=== PATIENT | male | born 1970 | race Caucasian/White ===

== ENCOUNTER 2017-04-22 14:23 | Inpatient (IN) | payer OTHER ==
[~2017-04-22] VITALS: Ht 177.8 cm; Wt 127.5 kg
--- NOTE | 2017-04-22 14:40 | NUR ---
PT IS IN ROOM #1A. DR THORNTON EVALUATED THE PT.
[2017-04-22] MEDS ORDERED: NITROGLYCERIN 0.4 MG/TAB BOTTLE SL ONE ×2 (14:41→15:00)
[2017-04-22] MEDS ORDERED: ASPIRIN 81 MG TAB.CHEW ONE (14:42)
[2017-04-22 14:48] LABS: BASOPHILS # (AUTO) 0.4 K/uL (0.0-8.0); BASOPHILS % (AUTO) 2.8 % (0.0-2.0); CREATININE 1.7 mg/dL (0.6-1.3); EOSINOPHILS # (AUTO) 0.4 K/uL (0.0-0.7); EOSINOPHILS % (AUTO) 2.9 % (0.0-7.0); HEMATOCRIT 44.6 % (40-50); HEMOGLOBIN 14.6 G/DL (14.0-18.0); LYMPHOCYTES # (AUTO) 3.7 K/UL (0.8-4.8); LYMPHOCYTES % (AUTO) 25.1 % (20.5-51.5); MEAN CORPUSCULAR HEMOGLOBIN 27.2 UUG (27.0-31.0); MEAN CORPUSCULAR HGB CONC 33 g/dL (32.0-37.0); MEAN CORPUSCULAR VOLUME 83.2 FL (82.0-92.0); MONOCYTES # (AUTO) 0.9 K/UL (0.1-1.30); MONOCYTES % (AUTO) 6.3 % (0.0-11.0); NEUTROPHILS # (AUTO) 9.5 K/UL (1.8-8.9); NEUTROPHILS % (AUTO) 62.9 % (38.5-71.5); PLATELET COUNT (AUTO) 298 K/UL (150-450); POTASSIUM 3.2 mmol/L (3.5-5.1); RED BLOOD CELL COUNT(AUTO) 5.36 MIL/UL (4.7-6.1); WHITE BLOOD COUNT (AUTO) 14.9 K/UL (4.0-11.2)
[2017-04-22] MEDS ORDERED: ASPIRIN 81 MG TAB.CHEW PO ONE (15:00)
[2017-04-22] MEDS ORDERED: NITROGLYCERIN OINT 1 GM PACKET TP ONE ×2 (15:00→15:17)
[2017-04-22] MEDS ORDERED: LISI40TA4 PO (15:10)
[2017-04-22] MEDS ORDERED: NICO1PAT25 TP (15:10)
[2017-04-22] MEDS ORDERED: HYDR-4076 PO (15:10)
[2017-04-22] MEDS ORDERED: ASPI-605 PO (15:10)
[2017-04-22] MEDS ORDERED: HYDR-4077 PO (15:10)
[2017-04-22] MEDS ORDERED: METO50TA3 PO (15:10)
[2017-04-22] MEDS ORDERED: AMLO10TA2 PO (15:10)
[2017-04-22] MEDS ORDERED: HYDR25TA4 PO (15:10)
[2017-04-22 15:15] LABS: BAND % (MANUAL) 4 % (0-10); EOSINOPHILS % (MANUAL) 4 % (0-8); LYMPHOCYTES % (MANUAL) 23 % (20-40); MONOCYTES % (MANUAL) 5 % (2-10); NEUTROPHILS % (MANUAL) 64 % (42-75)
[2017-04-22] MEDS ORDERED: METOPROLOL TARTRATE 50 MG TABLET PO ONE (16:00)
[2017-04-22] MEDS ORDERED: ENOXAPARIN SODIUM 30 MG/0.3 ML DISP.SYRIN SUBCUT ONE (16:00)
[2017-04-22] MEDS ORDERED: FENTANYL CITRATE 100 MCG/2 ML AMPUL IV ONE (16:00)
[2017-04-22] MEDS ORDERED: FENTANYL CITRATE 100 MCG/2 ML AMPUL ONE (16:19)
[2017-04-22] MEDS ORDERED: METOPROLOL TARTRATE 50 MG TABLET ONE (16:20)
[2017-04-22] MEDS ORDERED: ENOXAPARIN SODIUM 40 MG/0.4 ML DISP.SYRIN SQ ONE ×2 (16:20→23:04)
[2017-04-22] MEDS ORDERED: ENOXAPARIN SODIUM 80 MG/0.8 ML DISP.SYRIN SQ ONE (16:21)
--- NOTE | 2017-04-22 16:30 | NUR ---
PT WAS TRANSFERED TO ROOM #221. REPORT WAS GIVEN TO CARBURETOR REBUILDER.
[2017-04-22 17:00] VITALS: BP 143/76
--- NOTE | 2017-04-22 17:15 | NUR ---
ADMISSION PROTOCOL FOLLOWED, PT AXOX4, AMBULATORY, HAS CHEST PAIN 7/10 NON RADIATING. PT STATES HE HAS BEEN RECENTLY HOMELESS AND HAS BEEN STRESSED ON FINDING A PLACE AND MONEY. DR AMELIA CASTRO MADE AWARE OF PT ARRIVAL AND ORDERS WERE RECEIVED. PT GIVEN PAIN MEDICATION AND IS NOW PAIN FREE AT THIS TIME, EATING DINNER IN BED. CALL LIGHT IN REACH, BED ALARM ON
[2017-04-22] MEDS: MORPHINE SULFATE 2 MG/1 ML DISP.SYRIN IV PRN ×2 (17:49→22:00)
[2017-04-22 21:35] VITALS: BP 105/56
[2017-04-22] MEDS ORDERED: ACETAMINOPHEN 325 MG TABLET PO PRN (22:00)
[2017-04-22] MEDS ORDERED: MAGNESIUM HYDROXIDE 30 ML LIQUID UDC PO PRN (22:00)
[2017-04-22] MEDS ORDERED: ONDANSETRON 4 MG/2 ML VIAL IV PRN (22:00)
[2017-04-22] MEDS ORDERED: ENOXAPARIN SODIUM 30 MG/0.3 ML DISP.SYRIN SUBCUT SCH (22:00)
[2017-04-22] MEDS ORDERED: Z GUARD REMEDY PASTE 57 GM TUBE TOP PRN (22:00)
[2017-04-22] MEDS ORDERED: MORPHINE SULFATE 2 MG/1 ML DISP.SYRIN IV PRN (22:00)
[2017-04-23] VITALS (18 sets, daily range): BP systolic 120–149; BP diastolic 43–101
--- NOTE | 2017-04-23 00:01 | NUR ---
PATIENT TROPONIN LEVEL 5.[address] AMELIA LARA WITH NO NEW ORDER AT THIS TIME, PATIENT AWAKE ALERT, ORIENTED, NO SOB NO CHEST PAIN, NOTED, SKIN WARM AND DRY TO TOUCH, ASYMPTOMATIC, V/S 149/85, HR. 73, RR 19, OXYGEN SAT 94%, T-98.1.
[2017-04-23] MEDS: HYDROCODONE/APAP 5-325MG TABLET PO PRN ×2 (03:11→11:17)
--- NOTE | 2017-04-23 03:11 | NUR ---
PATIENT GIVEN NARCO 5/325 PO TAB, FOR LEFT CHEST, RIGHT CHEST PAIN, PATIENT STATED "ITS PROBABLY THE WAY I SLEEP" BP 146/80, 69, OXYGEN SAT 94% USES CPAP BEFORE GOING BACK TO SLEEP, SKIN WARM AND DRY, CHEST PAIN IS NON RADIATING ACCORDING TO PATIENT. CONT TO MONITOR.
[2017-04-23] MEDS ORDERED: HYDROCODONE/APAP 5-325MG TABLET ONE (03:21)
--- NOTE | 2017-04-23 05:40 | NUR ---
PATIENT TROPONIN 8.[address] JANETT ASHTON WITH ORDERS. PATIENT AWAKE ALERT, SKIN WARM AND DRY TO TOUCH. NO S/S OF DISTRESS.
[2017-04-23] MEDS ORDERED: HEPARIN/D5W DRIP 500 ML ONE (06:22)
--- NOTE | 2017-04-23 06:33 | NUR ---
TRANSFER PATIENT TO CCU UNIT, GIVEN REPORT TO RECEIVING NURSE.
[2017-04-23] MEDS ORDERED: LORAZEPAM 2 MG/1 ML VIAL IV ONE (06:45)
[2017-04-23 06:56] LABS: BILIRUBIN,TOTAL 0.5 mg/dL (0.2-1.0); CREATININE 1.5 mg/dL (0.6-1.3); MAGNESIUM 1.9 mg/dL (1.8-2.4); PHOSPHOROUS 3.7 mg/dL (2.5-4.9); POTASSIUM 2.9 mmol/L (3.5-5.1); TOTAL PROTEIN, SERUM 6.7 g/dL (6.4-8.2)
[2017-04-23] MEDS ORDERED: LORAZEPAM 2 MG/1 ML VIAL ONE (06:58)
--- NOTE | 2017-04-23 06:58 | NUR ---
New order Ativan pulled from [facility], administered as ordered. See eMAR STK-MED ONCE
[2017-04-23 07:00] LABS: BASOPHILS # (AUTO) 0.1 K/uL (0.0-8.0); BASOPHILS % (AUTO) 0.5 % (0.0-2.0); EOSINOPHILS # (AUTO) 0.3 K/uL (0.0-0.7); EOSINOPHILS % (AUTO) 2.7 % (0.0-7.0); HEMOGLOBIN 13.1 G/DL (14.0-18.0); LYMPHOCYTES # (AUTO) 3.4 K/UL (0.8-4.8); LYMPHOCYTES % (AUTO) 26.1 % (20.5-51.5); MEAN CORPUSCULAR HEMOGLOBIN 27.6 UUG (27.0-31.0); MEAN CORPUSCULAR HGB CONC 34 g/dL (32.0-37.0); MEAN CORPUSCULAR VOLUME 82.3 FL (82.0-92.0); MONOCYTES % (AUTO) 7.4 % (0.0-11.0); NEUTROPHILS # (AUTO) 8.1 K/UL (1.8-8.9); NEUTROPHILS % (AUTO) 63.3 % (38.5-71.5); PLATELET COUNT (AUTO) 255 K/UL (150-450); WHITE BLOOD COUNT (AUTO) 12.9 K/UL (4.0-11.2)
[2017-04-23 07:07] LABS: RED BLOOD CELL COUNT(AUTO) 4.73 MIL/UL (4.7-6.1)
[2017-04-23] MEDS ORDERED: HEPARIN SODIUM,PORCINE 5,000 UNITS/ML VIAL IV ONE ×2 (07:15)
--- NOTE | 2017-04-23 07:23 | NUR ---
As reported by rn Ania heparin ordered by Dr. Dias with pharmacy to dose bolus dose to be given. bolus calculated by pharmacist Sara. and orders to give 8000 units and start drip double check with pharmacist.
--- NOTE | 2017-04-23 07:27 | NUR ---
Spoke with Dr. Dias for clarification of Heparin order. Stated that the calculated units for bolus and rate per protocol is bolus of 8909 units and max rate of 1200 units/hr. Per MD, follow protocol and verify dose with pharmacy. Pharmacy called for clarification. Max bolus of 4000 units and max rate of 1200 units/hr to follow. Weight-based heparin protocol order sheet placed in paper chart.
[2017-04-23 07:37] LABS: THYROID STIMULATING HORMONE 1.246 mIU/mL (0.358-3.740)
[2017-04-23] MEDS: HEPARIN/D5W DRIP 500 ML IV PRN (07:55)
--- NOTE | 2017-04-23 08:00 | NUR ---
Dr. Leon in the unit to examine patient. Imaging Science Professor Mery notified to contact case fitter to initiate transfer process.
[2017-04-23] MEDS: AMLODIPINE 10 MG TABLET PO SCH (08:11)
[2017-04-23] MEDS: METOPROLOL TARTRATE 50 MG TABLET PO SCH ×2 (08:11→21:16)
[2017-04-23] MEDS ORDERED: POTASSIUM CHLORIDE 20 MEQ POWDER PACKET PO ONE (08:30)
--- NOTE | 2017-04-23 08:30 | NUR ---
A call back from gearcase assembler Lizzy face sheet sent by laney Villeda. Awaiting for plan of care.
[2017-04-23] MEDS: ATORVASTATIN 40 MG TABLET PO SCH (08:53)
[2017-04-23] MEDS: NICOTINE 21 MG/24HR PATCH TD SCH (08:53)
[2017-04-23] MEDS ORDERED: hydrALAZINE HCL 25 MG TABLET PO SCH (09:00)
--- NOTE | 2017-04-23 09:20 | NUR ---
a Troponing of 7.[address] reported at this time. Dr. Leon still in the unit and aware. No orders received.
[2017-04-23] MEDS ORDERED: HEPARIN SODIUM,PORCINE 5,000 UNITS/ML VIAL IV PRN (11:00)
[2017-04-23] MEDS: ASPIRIN EC 81 MG TABLET.DR PO SCH (11:16)
--- NOTE | 2017-04-23 12:00 | NUR ---
Dr. priscilla arias in the unit to examine patient; Report given, with no new orders received.
--- NOTE | 2017-04-23 12:30 | NUR ---
At this time a call from [facility] to [facility] that IE has to dictate where patient is going. She also stated that she has no phone number to call them. Mary Alice was provided with nursing blood donor recruiter supervisor cell phone number to informed her since we're not allowed to give community case manager's cell phone number.
[2017-04-23] MEDS: hydrALAZINE HCL 50 MG TABLET PO SCH ×2 (13:28→16:52)
[2017-04-23] MEDS: FENTANYL CITRATE 100 MCG/2 ML AMPUL IV PRN ×3 (13:30→21:16)
--- NOTE | 2017-04-23 13:37 | NUR ---
hand off report given to laney Ordonez.
--- NOTE | 2017-04-23 15:00 | NUR ---
Nursing child care supervisor with [facility] call number
--- NOTE | 2017-04-23 15:07 | NUR ---
A call to nursing supervisor screen making at this time to follow up with possible transfer and contact number for [facility]insurance. Addendum: 04/23/17 at 1509 by RENETTA BURKETT RN [facility] contact number awaiting call back.
--- NOTE | 2017-04-23 15:18 | NUR ---
a call to dr. Leon for diet orders.
--- NOTE | 2017-04-23 15:19 | NUR ---
At this time [facility] called and as automated response gather information stating that patient is under medical coverage and [facility] [place]. Nursing Devops Architect informed.
--- NOTE | 2017-04-23 21:45 | NUR ---
PTT drawn at this time, pending results for Heparin gtt adjustment
[2017-04-23] MEDS: ZOLPIDEM 5 MG TABLET PO PRN (22:48)
--- NOTE | 2017-04-23 23:00 | NUR ---
PTT results 36.0. Changes to rate per Heparin drip protocol calls for new rate of 1600 units/hr. On protocol form, states "Infusion rate (1200 units/hr)." Clarified with Dr. Ramirez. Okayed by MD to exceed 1200 units/hr to follow rate as calculated. Patient also now complaining of chest pain despite medication given earlier. Notified MD. New orders received and implemented.
[2017-04-23] MEDS ORDERED: MORPHINE SULFATE 2 MG/1 ML DISP.SYRIN IV ONE (23:30)
[2017-04-23] MEDS ORDERED: NITROGLYCERIN OINT 1 GM PACKET TP ONE (23:30)
[2017-04-24] VITALS (23 sets, daily range): BP systolic 115–160; BP diastolic 65–128
[2017-04-24] MEDS: HEPARIN/D5W DRIP 500 ML IV PRN ×2 (02:38→17:22)
[2017-04-24 05:22] LABS: BASOPHILS % (AUTO) 0.4 % (0.0-2.0); EOSINOPHILS # (AUTO) 0.4 K/uL (0.0-0.7); EOSINOPHILS % (AUTO) 3.4 % (0.0-7.0); HEMATOCRIT 40.2 % (40-50); HEMOGLOBIN 13.4 G/DL (14.0-18.0); LYMPHOCYTES # (AUTO) 3.7 K/UL (0.8-4.8); LYMPHOCYTES % (AUTO) 31.7 % (20.5-51.5); MEAN CORPUSCULAR HEMOGLOBIN 27.5 UUG (27.0-31.0); MEAN CORPUSCULAR HGB CONC 33 g/dL (32.0-37.0); MEAN CORPUSCULAR VOLUME 82.8 FL (82.0-92.0); MONOCYTES # (AUTO) 1.1 K/UL (0.1-1.30); MONOCYTES % (AUTO) 9.5 % (0.0-11.0); NEUTROPHILS # (AUTO) 6.6 K/UL (1.8-8.9); PLATELET COUNT (AUTO) 238 K/UL (150-450); RED BLOOD CELL COUNT(AUTO) 4.86 MIL/UL (4.7-6.1); WHITE BLOOD COUNT (AUTO) 11.8 K/UL (4.0-11.2)
[2017-04-24 05:34] LABS: CREATININE 1.2 mg/dL (0.6-1.3); PHOSPHOROUS 3.7 mg/dL (2.5-4.9)
[2017-04-24] MEDS: ASPIRIN EC 81 MG TABLET.DR PO SCH (08:28)
[2017-04-24] MEDS: AMLODIPINE 10 MG TABLET PO SCH (08:28)
[2017-04-24] MEDS: FENTANYL CITRATE 100 MCG/2 ML AMPUL IV PRN ×4 (08:28→21:53)
[2017-04-24] MEDS: ATORVASTATIN 40 MG TABLET PO SCH (08:29)
[2017-04-24] MEDS: hydrALAZINE HCL 50 MG TABLET PO SCH ×3 (08:29→16:21)
[2017-04-24] MEDS: METOPROLOL TARTRATE 50 MG TABLET PO SCH ×2 (08:29→20:32)
[2017-04-24] MEDS: NICOTINE 21 MG/24HR PATCH TD SCH (08:30)
--- NOTE | 2017-04-24 09:36 | NUR ---
8:46 Called [facility] [ ] and was directed to their after hours phone line - [phone]. 8:48 Called After Hours and they stated that the offices are closed and the only ones available are the RN advisors which do not deal with transfers. Was transferred to their Transportation Services Line and spoke to Ruthie who said that they can not help at this time but provided Customer Service Line. 8:54 Called Customer Service Line [ ] and they are currently closed. The answering service redirected this certified physician assistant to their after hours phone line [ ] once again. 8:58 Called [facility] [ ; [address] [place] [address]] because it is the [facility] where the patient's PCP, Dr. Norwood, is affiliated with. Spoke to their RN Fan Blade Truer, Radha, about the patient's situation and she stated that they are currently full and has 7 patients in their ER waiting for a bed. She suggested for the patient's information to be faxed to their Senior Asic Engineer [ ; ext.[phone]; ] and follow-up tomorrow. Faxed his information. 9:15 Had been in contact with Saloni [ ], TRA from [facility], and she stated that they can not help with the transfer because the patient is Out Of Area.
[2017-04-24] MEDS ORDERED: POTASSIUM CHLORIDE 20 MEQ TAB.PRT.SR PO ONE (12:15)
--- NOTE | 2017-04-24 12:20 | NUR ---
Dr. Polk in to examine patient and update him of plan of care.
--- NOTE | 2017-04-24 12:21 | NUR ---
Dr. Polk in the unit to examine patient; full report given and DrRahel also updated MJ. pt's daughter who remains at bedside. Addendum: 04/24/17 at 1223 by RENETTA BURKETT RN The above note intended for another patient. User error.
[2017-04-24] MEDS ORDERED: CLOPIDOGREL 75 MG TABLET PO ONE (16:15)
[2017-04-25] VITALS (14 sets, daily range): BP systolic 109–150; BP diastolic 64–85
[2017-04-25] MEDS: ZOLPIDEM 5 MG TABLET PO PRN (01:50)
--- NOTE | 2017-04-25 02:18 | NUR ---
Shift note: Pt a/o x 4. No cardiopulmonary distress. on 2L nc oxygen. sats mid 90s. assessment done and charted. medicated for chest pain with fentanyl as per order with good relief of pain to 0/10 from 01/31. CPAP on at midnight. RT checked the setting with pt. Resting comfortably. NSR on monitor. continue to monitor.
--- NOTE | 2017-04-25 06:47 | NUR ---
Pt asleep. no changes. weight not done. will endorse it to day shift. waiting for PTT.
[2017-04-25 06:53] LABS: BASOPHILS # (AUTO) 0.1 K/uL (0.0-8.0); BASOPHILS % (AUTO) 0.5 % (0.0-2.0); EOSINOPHILS # (AUTO) 0.4 K/uL (0.0-0.7); EOSINOPHILS % (AUTO) 3.7 % (0.0-7.0); HEMATOCRIT 39.7 % (40-50); HEMOGLOBIN 13.1 G/DL (14.0-18.0); LYMPHOCYTES # (AUTO) 3.5 K/UL (0.8-4.8); LYMPHOCYTES % (AUTO) 29.7 % (20.5-51.5); MEAN CORPUSCULAR HEMOGLOBIN 27.1 UUG (27.0-31.0); MEAN CORPUSCULAR HGB CONC 33 g/dL (32.0-37.0); MEAN CORPUSCULAR VOLUME 82.4 FL (82.0-92.0); MONOCYTES % (AUTO) 8.3 % (0.0-11.0); NEUTROPHILS # (AUTO) 6.7 K/UL (1.8-8.9); NEUTROPHILS % (AUTO) 57.8 % (38.5-71.5); PLATELET COUNT (AUTO) 242 K/UL (150-450); RED BLOOD CELL COUNT(AUTO) 4.82 MIL/UL (4.7-6.1); WHITE BLOOD COUNT (AUTO) 11.7 K/UL (4.0-11.2)
[2017-04-25 07:29] LABS: CREATININE 1.2 mg/dL (0.6-1.3); MAGNESIUM 2.1 mg/dL (1.8-2.4); PHOSPHOROUS 3.3 mg/dL (2.5-4.9); POTASSIUM 3.4 mmol/L (3.5-5.1)
[2017-04-25] MEDS: HEPARIN/D5W DRIP 500 ML IV PRN (07:30)
[2017-04-25] MEDS: FENTANYL CITRATE 100 MCG/2 ML AMPUL IV PRN (07:57)
[2017-04-25] MEDS: ASPIRIN EC 81 MG TABLET.DR PO SCH (08:06)
[2017-04-25] MEDS: ATORVASTATIN 40 MG TABLET PO SCH (08:06)
[2017-04-25] MEDS: AMLODIPINE 10 MG TABLET PO SCH (08:07)
[2017-04-25] MEDS: METOPROLOL TARTRATE 50 MG TABLET PO SCH (08:08)
[2017-04-25] MEDS: hydrALAZINE HCL 50 MG TABLET PO SCH ×2 (08:08→13:26)
[2017-04-25] MEDS: NICOTINE 21 MG/24HR PATCH TD SCH (08:19)
[2017-04-25] MEDS ORDERED: CLOPIDOGREL 75 MG TABLET PO SCH (09:00)
[2017-04-25] MEDS ORDERED: POTASSIUM CHLORIDE 20 MEQ TAB.PRT.SR PO ONE (12:00)
--- NOTE | 2017-04-25 12:55 | NUR ---
Patient has been accepted at [facility]. Spoke to Kishore Bansal (dye and chemical coordinator) regarding patient needing Cardiac Catherization. MD is accepting patient at this time. Spoke to MICHAEL Cervantes who is coming now via ambulance to merchandise pickup/receiving associate the patient. Contact number [phone] . Insurance contacted and agrees to cover patient. [facility] contact is Blanche . Awaiting transportation at this time. Patient agreeable to plan.
--- NOTE | 2017-04-25 13:25 | NUR ---
Spoke to Helen, contact at [facility], burr picker will be at 2 pm. Rn will bring an IV pole for Heparin Drip. RN in [facility] ccu gave report.
--- NOTE | 2017-04-25 14:04 | NUR ---
10:15 Tried calling [facility] [ ] to speak to a U/R CM but was re-routed from different phone numbers and provided Verication Code# [id number] 11:26 Searched [facility] on line and obtained phone number - . Spoke to Lisa and provided Auth# [id number]. Informed her of the situation and she provided a field contact person - Blanche - 11:33 Tried calling [facility] - but was placed on hold 12:01 Spoke to Admitting of [facility] [ ; ] and was asked to fax the patient's information. Also spoke to Jonn from their Currency Exchange Specialist [ ; ] and faxed the patient's information as well. 12:12 Dr. Leon was updated on the matter 12:15 Spoke to Nakita from [facility] [ ; ] about the situation and she asked for his information to be faxed. Updated the patient on the situation and CCU RN, Graciela. Dena had been in contact with [facility]. She was able to find an accepting MD and they will poultry picking machine tender the patient via their own ambulance. The patient was in agreement.
== END 2017-04-25 15:00 | disposition short-term general hospital (02) | DRG 190 ==
LOC: ER 14:23 → TELE 16:30 → CCU 04-23 06:22
PROVIDERS: ADMIT Nurse Practitioner Acute Care; ATTEND Nurse Practitioner Acute Care
DX: I21.4 Non-ST elevation (NSTEMI) myocardial infarction (principal); N17.0 Acute kidney failure with tubular necrosis; I50.31 Acute diastolic (congestive) heart failure; E46 Unspecified protein-calorie malnutrition; I25.10 Atherosclerotic heart disease of native coronary artery without angina pectoris; Z95.5 Presence of coronary angioplasty implant and graft; Z79.82 Long term (current) use of aspirin; Z79.899 Other long term (current) drug therapy; I13.0 Hypertensive heart and chronic kidney disease with heart failure and stage 1 through stage 4 chronic kidney disease, or unspecified chronic kidney disease; N18.9 Chronic kidney disease, unspecified; I25.2 Old myocardial infarction; Z59.0 Homelessness; F17.210 Nicotine dependence, cigarettes, uncomplicated; E87.6 Hypokalemia; E78.5 Hyperlipidemia, unspecified; E66.01 Morbid (severe) obesity due to excess calories; Z68.41 Body mass index [BMI] 40.0-44.9, adult; Z71.3 Dietary counseling and surveillance
CPT/HCPCS: 36415; 70030-TC; 71010; 83735; 84100; 84443; 85025; 85730; 93005; 93307; A4663; J1644; J1650; J2060; J2270; J3010